=== PATIENT | male | born 1945 ===

== ENCOUNTER → 2021-02-03 | Outpatient (CLI) | payer SELFPAY ==
[2021-02-05 15:39] LABS: CORONAVIRUS (COVID19) CSH-NRL Negative (Negative)
== END | disposition home or self-care (01) ==
LOC: LAB SHORT 12:21
PROVIDERS: Chiropractor
DX: Z20.822 Contact with and (suspected) exposure to COVID-19 (principal)
CPT/HCPCS: U0003